=== PATIENT | female | born 1985 | race Caucasian/White ===

== ENCOUNTER 2016-08-19 13:11 | Emergency (ER) | payer MEDICAID ==
[2016-08-19 13:33] VITALS: BP 118/72
[2016-08-19] MEDS ORDERED: Meclizine 25 MG Tab PO ONE (13:34)
--- NOTE | 2016-08-19 13:37 | EDM.PDOC ---
ED HPI GENERAL MEDICAL PROBLEM - General Chief Complaint: General Stated Complaint: DIZZY, LIGHT HEADED, VOMITTING Time Seen by Provider: 08/19/16 13:20 Source of Information: Reports: Patient, Family History Limitations: Reports: No Limitations - History of Present Illness INITIAL COMMENTS - FREE TEXT/NARRATIVE: 31 y.o.w.f in prev healthy condition, came to the ed due to dizziness since last night, denies history of vertigo. No N/V/D or other acute medical issues. Onset: Sudden Onset Date: 08/18/16 Onset Time: 19:00 Duration: Hour(s): Location: Reports: Head Severity: Moderate Improves with: Reports: None Worsens with: Reports: None Associated Symptoms: Reports: No Other Symptoms - Related Data Allergies Allergy/AdvReac Type Severity Reaction Status Date / Time No Known Allergies Allergy Verified 03/17/15 08:03 Home Meds: Home Meds Ciprofloxacin HCl [Cipro] 500 mg PO BID #20 tablet 08/19/16 [Rx] Hydrocort/Neomycin/Polymyxin B [Tczlhija-Qbotkishx-EU Otic Susp] 3 drop EARRT Q8HR 8 Days 08/19/16 [Rx] Meclizine [Antivert] 25 mg PO TID PRN #20 tab.chew 08/19/16 [Rx] Past Medical History - Past Health History Medical/Surgical History: Denies 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: Endocrine/Metabolic History: Reports: Obesity/BMI 30+ - Infectious Disease History Infectious Disease History: Reports: Chicken Pox - Past Surgical History Endocrine Surgical History: Reports: None Social & Family History - Family History Endocrine/Metabolic: Reports: Obesity/MBI 30+ - Tobacco Use Smoking Status *Q: Never Smoker - Alcohol Use Days Per Week of Alcohol Use: 0 - Recreational Drug Use Recreational Drug Use: No ED ROS GENERAL - Review of Systems Review Of Systems: See Below Constitutional: Reports: No Symptoms HEENT: Reports: Vertigo Respiratory: Reports: No Symptoms Cardiovascular: Reports: No Symptoms Endocrine: Reports: No Symptoms GI/Abdominal: Reports: No Symptoms : Reports: No Symptoms Musculoskeletal: Reports: No Symptoms Skin: Reports: No Symptoms Neurological: Reports: No Symptoms Psychiatric: Reports: No Symptoms Hematologic/Lymphatic: Reports: No Symptoms Immunologic: Reports: No Symptoms ED EXAM, GENERAL - Physical Exam Exam: See Below Exam Limited By: No Limitations General Appearance: Alert, WD/WN, Mild Distress, Obese Eye Exam: Bilateral Eye: Nystagmus Ears: Other (OE r ear) Ear Exam: Bilateral Ear: Auricle Normal Nose: Normal Inspection, Normal Mucosa Throat/Mouth: Normal Inspection, Normal Lips, Normal Teeth, Normal Gums Head: Atraumatic, Normocephalic Neck: Normal Inspection, Supple, Non-Tender, Full Range of Motion Respiratory/Chest: No Respiratory Distress, Lungs Clear, Normal Breath Sounds, No Accessory Muscle Use, Chest Non-Tender Cardiovascular: Normal Peripheral Pulses, Regular Rate, Rhythm, No Edema, No Gallop, No JVD, No Murmur, No Rub Peripheral Pulses: 2+: Femoral (L), Femoral (R) GI/Abdominal: Normal Bowel Sounds (Female) Exam: Deferred Rectal (Female) Exam: Deferred Back Exam: Normal Inspection, Full Range of Motion Neurological: Alert, Oriented, CN II-XII Intact, Other (nystagmus) Psychiatric: Normal Affect, Normal Mood Skin Exam: Warm, Dry, Intact, Normal Color, No Rash Lymphatic: No Adenopathy Course - Vital Signs Text/Narrative:: 31 y.o.w.f in prev healthy condition, came to the ed due to dizziness since last night, denies history of vertigo. No N/V/D or other acute medical issues. PE: Bilat nystagmus Labs; UA pos for UTI Impression: BPPV, UTI Tx: Antivert Reexam: Impreoved 50% Plan: D/C with instructions Last Recorded V/S: Last Vital Signs Temp 36.8 C 08/19/16 13:20 Pulse 73 08/19/16 13:20 Resp 18 08/19/16 13:20 BP 118/72 08/19/16 13:20 Pulse Ox 100 08/19/16 13:20 Orthostatic Blood Pressure [ 113/78 Standing] Orthostatic Blood Pressure [ 103/65 Sitting] Orthostatic Blood Pressure [ 110/70 Supine] - Orders/Labs/Meds Orders: Active Orders 24 hr Category Date Time Status CULTURE URINE [RM] Stat Lab 08/19/16 15:59 Uncollected Labs: Laboratory Tests 08/19/16 08/19/16 08/19/16 Range/Units 14:50 14:50 14:50 WBC 7.0 (4.5-12.0) X10-3/uL RBC 5.21 H (3.23-5.20) x10(6)uL Hgb 14.5 D (11.5-15.5) g/dL Hct 43.6 D (30.0-51.3) % MCV 83.7 (80-96) fL MCH 27.8 (27.7-33.6) pg MCHC 33.2 (32.2-35.4) g/dL RDW 12.9 (11.5-15.5) % Plt Count 317 (125-369) X10(3)uL MPV 7.3 L (7.4-10.4) fL Neut % (Auto) 65.7 (46-82) % Lymph % (Auto) 26.3 (13-37) % Luce % (Auto) 6.4 (4-12) % Eos % (Auto) 1 (1.0-5.0) % Baso % (Auto) 1 (0-2) % Neut # (Auto) 4.7 (1.6-8.3) # Lymph # (Auto) 1.8 (0.6-5.0) # Luce # (Auto) 0.4 (0.0-1.3) # Eos # (Auto) 0.1 (0.0-0.8) # Baso # (Auto) 0.0 (0.0-0.2) # PT 9.9 (8.7-11.1) INR 0.98 (0.89-1.13) Sodium 139 (135-145) mmol/L Potassium 4.4 (3.5-5.3) mmol/L Chloride 106 (100-110) mmol/L Carbon Dioxide 27 (23-29) mmol/L BUN 12 (5-20) mg/dL Creatinine 0.8 (0.6-1.3) mg/dL Est Cr Clr Drug Dosing TNP Estimated GFR (MDRD) > 60 (>60) BUN/Creatinine Ratio 15.0 (9-20) Glucose 89 (80-116) mg/dL Hemoglobin A1c (4.0-6.0) % Calcium 9.3 (8.6-10.2) mg/dL Urine Color (YELLOW) Urine Appearance (CLEAR) Urine pH (5.0-6.5) Ur Specific [place] (1.010-1.025) Urine Protein (NEGATIVE) mg/dL Urine Glucose (UA) (NEGATIVE) mg/dL Urine Ketones (NEGATIVE) mg/dL Urine Occult Blood (NEGATIVE) Urine Nitrite (NEGATIVE) Urine Bilirubin (NEGATIVE) Urine Urobilinogen (NEGATIVE) mg/dL Ur Leukocyte Esterase (NEGATIVE) Urine RBC (0) Urine WBC (0) Ur Squamous Epith Cells (NS,R,O) Urine Bacteria (NS) Urine HCG, Qual (NEGATIVE) 08/19/16 08/19/16 08/19/16 Range/Units 14:50 15:35 15:35 WBC (4.5-12.0) X10-3/uL RBC (3.23-5.20) x10(6)uL Hgb (11.5-15.5) g/dL Hct (30.0-51.3) % MCV (80-96) fL MCH (27.7-33.6) pg MCHC (32.2-35.4) g/dL RDW (11.5-15.5) % Plt Count (125-369) X10(3)uL MPV (7.4-10.4) fL Neut % (Auto) (46-82) % Lymph % (Auto) (13-37) % Luce % (Auto) (4-12) % Eos % (Auto) (1.0-5.0) % Baso % (Auto) (0-2) % Neut # (Auto) (1.6-8.3) # Lymph # (Auto) (0.6-5.0) # Luce # (Auto) (0.0-1.3) # Eos # (Auto) (0.0-0.8) # Baso # (Auto) (0.0-0.2) # PT (8.7-11.1) INR (0.89-1.13) Sodium (135-145) mmol/L Potassium (3.5-5.3) mmol/L Chloride (100-110) mmol/L Carbon Dioxide (23-29) mmol/L BUN (5-20) mg/dL Creatinine (0.6-1.3) mg/dL Est Cr Clr Drug Dosing Estimated GFR (MDRD) (>60) BUN/Creatinine Ratio (9-20) Glucose (80-116) mg/dL Hemoglobin A1c 5.4 (4.0-6.0) % Calcium (8.6-10.2) mg/dL Urine Color Yellow (YELLOW) Urine Appearance Slightly cloudy (CLEAR) Urine pH 8.0 H (5.0-6.5) Ur Specific [place] 1.015 (1.010-1.025) Urine Protein Negative (NEGATIVE) mg/dL Urine Glucose (UA) Normal (NEGATIVE) mg/dL Urine Ketones Negative (NEGATIVE) mg/dL Urine Occult Blood Large H (NEGATIVE) Urine Nitrite Negative (NEGATIVE) Urine Bilirubin Negative (NEGATIVE) Urine Urobilinogen Normal (NEGATIVE) mg/dL Ur Leukocyte Esterase Large H (NEGATIVE) Urine RBC 10-20 H (0) Urine WBC 20-30 H (0) Ur Squamous Epith Cells Many H (NS,R,O) Urine Bacteria Moderate H (NS) Urine HCG, Qual Negative (NEGATIVE) Meds: Medications Discontinued Medications Generic Name Dose Route Start Last Admin Trade Name Freq PRN Reason Stop Dose Admin Sodium Chloride 1,000 mls @ 999 mls/hr 08/19/16 15:00 Normal Saline IV ASDIRECTED [facility] Meclizine HCl 50 mg 08/19/16 13:34 08/19/16 13:38 Antivert PO 08/19/16 13:35 50 mg ONETIME ONE Administration Departure - Departure Time of Disposition: 15:42 Disposition: Home, Self-Care 01 Condition: good Clinical Impression: Vertigo, UTI (urinary tract infection) Otitis externa Qualifiers: Otitis externa type: swimmer's ear Laterality: right Chronicity: acute Qualified Code(s): H60.331 - Swimmer's ear, right ear - Discharge Information Prescriptions: Hydrocort/Neomycin/Polymyxin B [Qvwiccqo-Zuxqfittj-PK Otic Susp] 3 drop EARRT Q8HR 8 Days Ciprofloxacin HCl [Cipro] 500 mg PO BID #20 tablet Meclizine [Antivert] 25 mg PO TID PRN #20 tab.chew PRN Reason: for dizziness Instructions: Vertigo Referrals: Moiz Padilla MD [Primary Care Provider] - Forms: ED Department Discharge Additional Instructions: Please take/apply the meds as recommended, please increase water intake, follow u, come back if the symptoms get worse acutely. - My Orders Last 24 Hours: My Active Orders 08/19/16 15:59 CULTURE URINE [RM] Stat - Assessment/Plan Last 24 Hours: My Active Orders 08/19/16 15:59 CULTURE URINE [RM] Stat
[2016-08-19] MEDS ORDERED: Sodium Chloride 0.9% 1,000 ML IV SCH (15:00)
== END 2016-08-19 15:50 | disposition home or self-care (01) ==
LOC: FB.ED 13:11
DX: N39.0 Urinary tract infection, site not specified (principal); R42 Dizziness and giddiness; H60.331 Swimmer's ear, right ear; E66.9 Obesity, unspecified; Z68.30 Body mass index [BMI] 30.0-30.9, adult
CPT/HCPCS: 36415; 80048; 81001; 81025; 83036; 85025; 85610; 99284; A9270; 99283

== ENCOUNTER 2018-04-11 21:20 | Emergency (ER) | payer MEDICAID, SELFPAY ==
[2018-04-11] MEDS ORDERED: Amoxicillin/Clavulanate K 875-125 MG Tab PO ONE (22:56)
--- NOTE | 2018-04-11 22:57 | EDM.PDOC ---
ED HPI GENERAL MEDICAL PROBLEM - General Chief Complaint: ENT Problem Time Seen by Provider: 04/11/18 21:52 Source of Information: Reports: Patient, Family History Limitations: Reports: No Limitations - History of Present Illness INITIAL COMMENTS - FREE TEXT/NARRATIVE: 32 y.o.w.f 28 wks , came to the ed because of left ear pain and decr hearing, and a possible abscessed tooth as well. 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 Pain Score (Numeric/FACES): 10 - Related Data Allergies Allergy/AdvReac Type Severity Reaction Status Date / Time No Known Allergies Allergy Verified 04/11/18 22:24 Home Meds: Home Meds Acetaminophen [Tylenol Extra Strength] 1,000 mg PO Q6H PRN 04/11/18 [History] Amoxicillin/Potassium Clav [Augmentin 875-125 Tablet] 1 each PO BID #20 tablet 04/11/18 [Rx] [id number]/Iron Fumarate/FA/DSS [ 19 Tablet] 1 each PO DAILY 04/11/18 [ History] Past Medical History - Past Health History Medical/Surgical History: Denies Medical/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: Endocrine/Metabolic History: Reports: Obesity/BMI 30+ - Infectious Disease History Infectious Disease History: Reports: Chicken Pox - Past Surgical History Endocrine Surgical History: Reports: None Social & Family History - Family History Family Medical History: Noncontributory Endocrine/Metabolic: Reports: Obesity/MBI 30+ - Tobacco Use Smoking Status *Q: Never Smoker - Caffeine Use Caffeine Use: Reports: Soda - Recreational Drug Use Recreational Drug Use: No ED ROS ENT - Review of Systems Review Of Systems: See Below Constitutional: Reports: No Symptoms HEENT: Reports: Ear Pain Respiratory: Reports: No Symptoms Endocrine: Reports: No Symptoms GI/Abdominal: Reports: Other () : Reports: No Symptoms Musculoskeletal: Reports: No Symptoms Skin: Reports: No Symptoms Neurological: Reports: No Symptoms Psychiatric: Reports: No Symptoms Hematologic/Lymphatic: Reports: No Symptoms Immunologic: Reports: No Symptoms ED EXAM, ENT - Physical Exam Exam: See Below Exam Limited By: No Limitations General Appearance: Alert, WD/WN, Mild Distress Eye Exam: Bilateral Eye: Normal Inspection Ears: Canal Material, Canal Swelling, TM Bulging Nose: Normal Inspection, Normal Mucousa, No Blood Mouth/Throat: Normal Inspection, Dental Abcess (possible), Dental Pain Head: Atraumatic, Normocephalic Neck: Normal Inspection, Supple, Non-Tender, Full Range of Motion Respiratory/Chest: No Respiratory Distress, Lungs Clear, Normal Breath Sounds, No Accessory Muscle Use, Chest Non-Tender Cardiovascular: Normal Peripheral Pulses, Regular Rate, Rhythm, No Edema, No Gallop, No JVD, No Murmur GI/Abdominal: Normal Bowel Sounds, Soft, Non-Tender, No Organomegaly, Other ( ) (Female) Exam: Other (28 weeks ) Rectal (Female) Exam: Deferred Back: Normal Inspection, Full Range of Motion Extremities: Normal Inspection, Normal Range of Motion, Non-Tender, No Pedal Edema Neurological: Alert, Oriented, CN II-XII Intact, Normal Cognition, Normal Gait Psychiatric: Normal Affect, Normal Mood Skin: Warm, Dry, Intact, Normal Color, No Rash Lymphatic: No Adenopathy Course - Vital Signs Text/Narrative:: 32 y.o.w.f 28 wks , came to the ed because of left ear pain and decr hearing, and a possible abscessed tooth as well. No trauma, No N/V?D or any other acute medical issue BP 120/70 Pulse 80 Temp 36.8 Puls ox 99% on RA PE: WNWD W F 28 wks prenant, left ear pain, poss left lower tooth 3rd molar Impression: Chronic 3r molar left lower toothache, otitis externa Tx: Augmentin/Corticosporine ear drops Reexam: Improved Plan: D/C with instructions Last Recorded V/S: Last Vital Signs Temp 36.6 C 04/11/18 22:20 Pulse 73 04/11/18 23:21 Resp 18 04/11/18 23:21 BP 129/63 04/11/18 23:21 Pulse Ox 98 04/11/18 23:21 - Orders/Labs/Meds Meds: Medications Discontinued Medications Generic Name Dose Route Start Last Admin Trade Name Christopher PRN Reason Stop Dose Admin Amoxicillin/Clavulanate Potassium 1 tab 04/11/18 22:56 04/11/18 23:11 Augmentin 875 Mg/125 Mg PO 04/11/18 22:57 1 tab ONETIME ONE Administration Neomycin/Polymyxin/Hydrocortisone 0.01 ml 04/11/18 23:00 04/11/18 23:12 Cortisporin Otic Susp EARLF 04/11/18 23:01 3 drop ONETIME ONE Administration Departure - Departure Time of Disposition: 22:53 Disposition: Home, Self-Care 01 Condition: Good Clinical Impression: Otitis externa Qualifiers: Otitis externa type: swimmer's ear Chronicity: acute Laterality: right Qualified Code(s): H60.331 - Swimmer's ear, right ear - Discharge Information Prescriptions: Amoxicillin/Potassium Clav [Augmentin 875-125 Tablet] 1 each PO BID #20 tablet Instructions: Amoxicillin; Clavulanic Acid tablets, Hydrocortisone; Neomycin; Polymyxin B ear solution, Otitis Media, Adult, [id number] Referrals: Mehul Pineda MD [Primary Care Provider] - Forms: ED Department Discharge Additional Instructions: Please apply corticosporine 3 drops to L ear 3 times a day for 7 days. Augmentin as recommended, please follow up with your regular MD if not improving , come back if your symptoms get worse acutely. Please see your dentist this Monday as scheduled.
[2018-04-11] MEDS ORDERED: Hydrocortisone/Neomycin/Polymyxin B Otic Susp 10 ML Bottle EARLF ONE (23:00)
[2018-04-11 23:23] VITALS: BP 129/63
== END 2018-04-11 23:23 | disposition home or self-care (01) ==
LOC: FB.ED 21:20
DX: O99.89 Other specified diseases and conditions complicating pregnancy, childbirth and the puerperium (principal); H60.331 Swimmer's ear, right ear; K08.89 Other specified disorders of teeth and supporting structures; E66.9 Obesity, unspecified; Z3A.28 28 weeks gestation of pregnancy
CPT/HCPCS: 99282; A9270; 99283

== ENCOUNTER 2018-05-18 00:49 | Emergency (ER) | payer SELFPAY ==
[2018-05-18] MEDS ORDERED: Amoxicillin 500 MG Cap PO ONE (01:14)
[2018-05-18 01:17] VITALS: BP 116/71
--- NOTE | 2018-05-18 01:20 | EDM.PDOC ---
ED HPI GENERAL MEDICAL PROBLEM - General Chief Complaint: ENT Problem Stated Complaint: EAR PAIN Time Seen by Provider: 05/18/18 00:49 Source of Information: Reports: Patient History Limitations: Reports: No Limitations - History of Present Illness INITIAL COMMENTS - FREE TEXT/NARRATIVE: 32 y.o.w.f 34 weeks , came to the ed due to left ear pain without decreased or loss of hearing. Pt was een by her PMD multiple times for same and no cause of pain was found. Pt took Tylenol without pain improvement. Pt was on Amoxicill 3 weeks ago, which helped her pain. No N/V/D or any other acute med issues. 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 - Related Data Allergies Allergy/AdvReac Type Severity Reaction Status Date / Time No Known Allergies Allergy Verified 05/18/18 01:01 Home Meds: Home Meds Acetaminophen [Tylenol Extra Strength] 1,000 mg PO Q6H PRN 04/11/18 [History] [id number]/Iron Fumarate/FA/DSS [ 19 Tablet] 1 each PO DAILY 04/11/18 [ History] Past Medical History - Past Health History Medical/Surgical History: Denies 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: Endocrine/Metabolic History: Reports: Obesity/BMI 30+ - Infectious Disease History Infectious Disease History: Reports: Chicken Pox - Past Surgical History Endocrine Surgical History: Reports: None Social & Family History - Family History Family Medical History: Noncontributory Endocrine/Metabolic: Reports: Obesity/MBI 30+ - Tobacco Use Smoking Status *Q: Never Smoker - Caffeine Use Caffeine Use: Reports: Soda - Recreational Drug Use Recreational Drug Use: No ED ROS ENT - Review of Systems Review Of Systems: See Below Constitutional: Reports: No Symptoms HEENT: Reports: Ear Pain Respiratory: Reports: No Symptoms Cardiovascular: Reports: No Symptoms Endocrine: Reports: No Symptoms GI/Abdominal: Reports: No Symptoms : Reports: No Symptoms Musculoskeletal: Reports: No Symptoms Skin: Reports: No Symptoms Neurological: Reports: No Symptoms Psychiatric: Reports: No Symptoms Hematologic/Lymphatic: Reports: No Symptoms Immunologic: Reports: No Symptoms ED EXAM, ENT - Physical Exam Exam: See Below Exam Limited By: No Limitations General Appearance: Alert, WD/WN, Mild Distress Eye Exam: Bilateral Eye: Normal Inspection Ears: Normal External Exam, Normal Canal, TM Dullness (left ear), TM Obscured by Cerumen Nose: Normal Inspection, Normal Mucousa, No Blood Mouth/Throat: Normal Inspection, Normal Gums, Normal Lips, Normal Oropharynx, Normal Teeth Head: Atraumatic, Normocephalic Neck: Normal Inspection, Supple, Non-Tender, Full Range of Motion Respiratory/Chest: No Respiratory Distress, Lungs Clear, Normal Breath Sounds, No Accessory Muscle Use, Chest Non-Tender Cardiovascular: Normal Peripheral Pulses, Regular Rate, Rhythm, No Edema, No Gallop, No Murmur, No Rub GI/Abdominal: Normal Bowel Sounds, Soft, Non-Tender, No Organomegaly, No Abnormal Bruit, No Mass, Pelvis Stable (Female) Exam: Other (34 week spregnent FHT 140) Rectal (Female) Exam: Deferred Back: Normal Inspection, Full Range of Motion Extremities: Normal Inspection, Normal Range of Motion, Non-Tender, No Pedal Edema Neurological: Alert, Oriented, CN II-XII Intact, Normal Cognition, Normal Gait Psychiatric: Normal Affect, Normal Mood Skin: Warm, Dry, Intact, Normal Color Lymphatic: No Adenopathy Course - Vital Signs Text/Narrative:: 32 y.o.w.f 34 weeks , came to the ed due to left ear pain without decreased or loss of hearing. Pt was een by her PMD multiple times for same and no cause of pain was found. Pt took Tylenol without pain improvement. Pt was on Amoxicill 3 weeks ago, which helped her pain. No N/V/D or any other acute med issues. BP 116/71 Pulse 84 Temp 37.1 RR 18 Pulse ox 98% on RA FHT 140 PE: WNWD W F 34 wks with lefyt ear pain, nl hearing Impression: possible left OM Tx: Amoxicillin Reexam: Improved Plan: F/U with ENT in am, D/C'd with instructions Last Recorded V/S: Last Vital Signs Temp 36.3 C 05/18/18 01:16 Pulse Resp 18 05/18/18 01:16 BP 116/71 05/18/18 01:16 Pulse Ox 98 05/18/18 01:16 - Orders/Labs/Meds Meds: Medications Discontinued Medications Generic Name Dose Route Start Last Admin Trade Name Christopher PRN Reason Stop Dose Admin Amoxicillin 500 mg 05/18/18 01:14 05/18/18 01:20 Amoxil PO 05/18/18 01:15 500 mg ONETIME ONE Administration Departure - Departure Time of Disposition: 01:17 Disposition: Home, Self-Care 01 Condition: Good Clinical Impression: Qualifiers: Weeks of gestation: 34 weeks Qualified Code(s): Z3A.34 - 34 weeks gestation of Otitis media Qualifiers: Chronicity: subacute Laterality: left Recurrence: recurrent - Discharge Information Referrals: Mehul Pineda MD [Primary Care Provider] - Forms: ED Department Discharge, ED Return to Work/School Form Additional Instructions: Please take amoxicillin as recommended, please follow up with ENT, please come back if your symptoms get worse acutely.
== END 2018-05-18 01:25 | disposition home or self-care (01) ==
LOC: FB.ED 00:49
DX: O99.89 Other specified diseases and conditions complicating pregnancy, childbirth and the puerperium (principal); H66.92 Otitis media, unspecified, left ear; Z3A.34 34 weeks gestation of pregnancy
CPT/HCPCS: 99282; A9270

== ENCOUNTER 2018-07-03 07:01 | Inpatient (IN) | payer SELFPAY ==
[2018-07-03] MEDS ORDERED: Misoprostol 25 MCG (1/4 of 100 MCG) Tab VAG ONE (07:03)
[2018-07-03] MEDS ORDERED: Sodium Chloride 0.9% 10 ML Syringe FLUSH PRN (07:57)
[2018-07-03] MEDS: Lactated Ringers 1,000 ML IV SCH ×3 (13:15→19:37)
[2018-07-03] MEDS ORDERED: INFUSION EPIDUR ONE (14:25)
[2018-07-03] MEDS ORDERED: ROPIVACAINE EPIDUR ONE (14:25)
--- NOTE | 2018-07-03 17:51 | PCM.SN ---
- Free Text/Narrative Note: ANESTHESIA PAIN SERVICE Date: 07/03/2018 Time: 1625 to 1700 Dx: Labor with Pain Rx: Labor Epidural with PCEA Physician and the Patient are requesting a Labor Epidural placement for pain control. See the anesthesia blue sheet for a H&P. Risks and benefits were discussed with the patient and her including PDPH, CLBP, site infection and epidural failure or incomplete coverage. Consent was obtained. Monitors: NIBP, HR and SpO2. Vital Signs: Please see the nursing notes. IV fluids infusing with a bolus of 500 ml's given. The patient was placed in a sitting position. The L2-3 interspace was located by palpitation. Using the B/Davila Perifix Continuous Epidural Anesthesia Tray, the lumbar area was prepped X 3 swabs with Betadine and allowed to dry. Using aseptic technique, the sterile clear drape was applied and the L2-3 interspace was infiltrated with 5 ml's of 1% Lidocaine plain using a 25 G needle. I then proceeded to insert a Perifix 17 G 3.5 in. Tuohy Epidural Needle X 1 attempt with (+) SHARMIN at 7 cm and NO CSF, Blood or Periesthesia. The Perifix FX Springwound Epidural Catheter 19 G. Open Tip was inserted easily through the Touhy needle to a depth of 13 cm to the skin. A test dose of 3 ml's of 1.5% Lidocaine with Epi 1/200,000 was injected after negative aspiration for CSF or Blood. NO intrathecal or tachycardia Sx were noted. The catheter was secured with an Opsite and tape. After the physician broke her "water", I injected a total of 15 ml's of .2% Naropin in divided doses without complications. After about 10 minutes, she stated that her legs are "very heavy" but she could lift her knees. I then started the continuous infusion of .2% Naropin at 10 ml/hr, PCEA of 4 ml every 15 minutes, and the total dose/hr of 26 ml's. I did instruct the patient on how to use the PCEA button with patient understanding it. Patient is without complaints or pain at this time. Miko Connor CRNA, Radha
[2018-07-03] MEDS ORDERED: ePHEDrine 50 MG/ML SDV IVPUSH PRN (17:56)
[2018-07-03] MEDS ORDERED: Ondansetron 4 MG/2 ML SDV IVPUSH PRN (17:56)
[2018-07-03] MEDS ORDERED: Lactated Ringers 500 ML IV ONE (18:00)
--- NOTE | 2018-07-03 19:30 | PCM.LDHP ---
L&D History of Present Illness - General Date of Service: 07/03/18 Admit Problem/Dx: Patient Status Order with Admit Dx/Problem 07/03/18 07:03 Admission Status [Patient Status] [ADT] Routine 07/03/18 16:48 Admission Status [Patient Status] [ADT] Routine Admission Diagnosis/Problem Admission Diagnosis/Problem Source of Information: Patient History Limitations: Reports: No Limitations - History of Present Illness Introduction:: 32 yo at term,for induction of labor - Related Data Allergies/Adverse Reactions: Allergies Allergy/AdvReac Type Severity Reaction Status Date / Time No Known Allergies Allergy Verified 07/03/18 08:15 Home Medications: Home Meds [id number]/Iron Fumarate/FA/DSS [ 19 Tablet] 1 each PO DAILY 04/11/18 [ History] Past Medical History - Past Health History Medical/Surgical History: Denies Medical/Surgical History 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 OB/BYN History: Endocrine/Metabolic History: Reports: Obesity/BMI 30+ - Infectious Disease History Infectious Disease History: Reports: Chicken Pox - Past Surgical History Endocrine Surgical History: Reports: None Social & Family History - Family History Family Medical History: Noncontributory Respiratory: Reports: Asthma Psychiatric: Reports: Other (See Below) Other Psychiatric Family History: grandmother has mental illness Endocrine/Metabolic: Reports: Obesity/MBI 30+ Oncologic: Reports: Colon - Tobacco Use Smoking Status *Q: Never Smoker Second Hand Smoke Exposure: No - Caffeine Use Caffeine Use: Reports: Soda - Recreational Drug Use Recreational Drug Use: No H&P Review of Systems - Review of Systems: Review Of Systems: ROS reveals no pertinent complaints other than HPI. L&D Exam - Exam Exam: See Below - Vital Signs Vital Signs: Last Vital Signs Temp 97.6 F 07/03/18 15:45 Pulse 98 07/03/18 19:05 Resp 20 07/03/18 19:00 BP 118/69 07/03/18 19:05 Pulse Ox 100 07/03/18 19:00 Weight: 109.769 kg - OB Specific Contraction Duration (sec): 50 Contraction Frequency (min): 5 Contraction Intensity: Irritability - Ordaz Score Ordaz Score Cervix Position: Posterior Ordaz Score Consistency: Soft Ordaz Score Dilation: 1-2 cm Ordaz Score Infant's Station: -2 - Exam General: Alert, Oriented HEENT: PERRLA, Conjunctiva Clear, EACs Clear, EOMI, Hearing Intact, Mucosa Moist & [place], Nares Patent, Normal Nasal Septum, Posterior Pharynx Clear, TMs Clear Neck: Supple, Trachea Midline Lungs: Clear to Auscultation, Normal Respiratory Effort Cardiovascular: Regular Rate, Regular Rhythm GI/Abdominal Exam: Normal Bowel Sounds, Soft, Non-Tender, No Organomegaly, No Distention, No Abnormal Bruit, No Mass, Pelvis Stable Rectal Exam: Normal Exam, Normal Rectal Tone Genitourinary: Normal external exam, Normal bimanual exam, Normal speculum exam Back Exam: Normal Inspection, Full Range of Motion Extremities: Normal Inspection, Normal Range of Motion, Non-Tender, No Pedal Edema, Normal Capillary Refill Skin: Warm, Dry, Intact Neurological: Cranial Nerves Intact, Reflexes Equal Bilateral Psychiatric: Alert, Normal Affect, Normal Mood - Problem List (1) Encounter for induction of labor SNOMED Code(s): 865541379 ICD Code: Z34.90 - ENCNTR FOR SUPRVSN OF NORMAL , UNSP, UNSP TRIMESTER Status: Acute Current Visit: Yes (2) Normal SNOMED Code(s): 92555948 ICD Code: Z34.90 - ENCNTR FOR SUPRVSN OF NORMAL , UNSP, UNSP TRIMESTER Status: Acute Priority: High Current Visit: No Qualifiers: Trimester: third trimester Qualified Code(s): Z34.93 - Encounter for supervision of normal , unspecified, third trimester Problem List Initiated/Reviewed/Updated: Yes Orders Last 24hrs: Active Orders 24 hr Category Date Time Status Admission Status [Patient Status] [ADT] Routine ADT 07/03/18 07:03 Active Admission Status [Patient Status] [ADT] Routine ADT 07/03/18 16:48 Active Bedrest [RC] ASDIRECTED Care 07/03/18 17:57 Active Communication Order [RC] ASDIRECTED Care 07/03/18 17:57 Active Monitoring [RC] CONTINUOUS Care 07/03/18 17:57 Active Head of Bed Elevation [RC] ASDIRECTED Care 07/03/18 17:57 Active Local Anesthetic Infusion Pump [RC] ASDIRECTED Care 07/03/18 17:57 Active Notify Provider [RC] PRN Care 07/03/18 12:43 Active Notify Provider [RC] STAT Care 07/03/18 12:43 Active Oxygen Therapy [RC] ASDIRECTED Care 07/03/18 17:57 Active PCEA Epidural [RC] ASDIRECTED Care 07/03/18 09:03 Active Pasero Opioid Induced Sedation [RC] Q1H Care 07/03/18 17:57 Active Peripheral IV Care [RC] . DIRECTED Care 07/03/18 17:57 Active Urinary Catheter Assessment [RC] Q4H Care 07/03/18 17:57 Active Vital Signs [RC] Q30M Care 07/03/18 17:57 Active Vital Signs [RC] Q5M Care 07/03/18 17:57 Active Lactated Ringers [Ringers, Lactated] 1,000 ml Med 07/03/18 13:00 Active IV ASDIRECTED Ondansetron [Zofran] Med 07/03/18 17:56 Active 4 mg IVPUSH Q6H PRN Oxytocin/Normal Saline [Pitocin in NS 20 Units/1,000 ML Med 07/03/18 12:45 Active ] 20 unit in 1,000 ml IV TITRATE Sodium Chloride 0.9% [Saline Flush] Med 07/03/18 07:57 Active 10 ml FLUSH ASDIRECTED PRN ePHEDrine [ePHEDrine sulfate] Med 07/03/18 17:56 Active 5 mg IVPUSH ASDIRECTED PRN Do Not Administer Anticoagulant Meds [AST] Per Unit [facility] 07/03/18 17:57 Ordered Routine Do Not Administer IV Narcs or Sedatives [AST] Per Unit Ot 07/03/18 17:57 Ordered Routine Epidural Catheter Management [OM.PC] Routine Ot 07/03/18 09:03 Ordered Epidural Catheter Management [OM.PC] Urgent Ot 07/03/18 17:57 Ordered Peripheral IV Insertion Adult [OM.PC] Routine Ot 07/03/18 07:57 Ordered Respiratory Rate [OM.PC] Routine Ot 07/03/18 17:57 Ordered Medication Orders Ephedrine Sulfate (Ephedrine Sulfate) 5 mg IVPUSH ASDIRECTED PRN PRN Reason: Hypotension Oxytocin/Sodium Chloride (Pitocin In Ns 20 Units/1,000 Ml) 20 unit in 1,000 mls @ 6 mls/hr IV TITRATE KALI; Protocol Last Titration: 07/03/18 18:28 Dose: 1 munits/min, 3 mls/hr Titration: 07/03/18 17:59 Dose: 0.5 munits/min, 1.5 mls/hr Titration: 07/03/18 17:45 Dose: 0 munits/min, 0 mls/hr Titration: 07/03/18 17:00 Dose: 10 munits/min, 30 mls/hr Titration: 07/03/18 15:40 Dose: 8 munits/min, 24 mls/hr Titration: 07/03/18 14:55 Dose: 6 munits/min, 18 mls/hr Titration: 07/03/18 14:25 Dose: 4 munits/min, 12 mls/hr Titration: 07/03/18 13:17 Dose: 2 munits/min, 6 mls/hr Admin: 07/03/18 13:16 Dose: 2 munits/min, 6 mls/hr Lactated Ringer's (Ringers, Lactated) 1,000 mls @ 125 mls/hr IV ASDIRECTED KALI Last Infusion: 07/03/18 17:58 Dose: 999 mls/hr Infusion: 07/03/18 17:45 Dose: 500 mls/hr Infusion: 07/03/18 17:14 Dose: 125 mls/hr Admin: 07/03/18 16:44 Dose: 999 mls/hr Infusion: 07/03/18 16:40 Dose: 999 mls/hr Infusion: 07/03/18 16:00 Dose: 999 mls/hr Admin: 07/03/18 13:15 Dose: 125 mls/hr Ondansetron HCl (Zofran) 4 mg IVPUSH Q6H PRN PRN Reason: Nausea/Vomiting Sodium Chloride (Saline Flush) 10 ml FLUSH ASDIRECTED PRN PRN Reason: Keep Vein Open Last Admin: 07/03/18 08:30 Dose: 10 ml Assessment/Plan Comment:: Trial of Cytotec. Then Pitocin.
[2018-07-03] MEDS ORDERED: Misoprostol 200 MCG Tab RECTAL STA (20:50)
--- NOTE | 2018-07-03 23:04 | DEL ---
DATE OF DELIVERY: 07/03/2018 PROCEDURE: Vaginal delivery, spontaneous. PREOPERATIVE DIAGNOSES: 1. G4, P3, at term. 2. Induction of labor. POSTOPERATIVE DIAGNOSES: 1. Successful induction of labor, elective. 2. Macrosomia. 3. Shoulder dystocia. 4. Spontaneous vaginal delivery. 5. hemorrhage, mild. BRIEF HISTORY: This is a 32-year-old female who was admitted for induction of labor. She progressed well, caudal epidural anesthesia, and AROM at 1700 hours with clear fluid. DELIVERY DETAILS: She was complete at about 8 o'clock. She pushed for about an hour. After the head was delivered, Yanelis maneuver was needed to reduce the anterior shoulder and also reduce the cord around the neck x1. The rest of the baby was then delivered with gentle normal traction for delivery. The baby was put to the nurses to commence resuscitation according to the NRP protocol. There was excessive bleeding noted after the placenta was removed by traction, and this was controlled by uterine massage, bimanual, 800 mcg of Cytotec, and Pitocin IV. Estimated blood loss about 500 mL. The product of the delivery was a live female weighing 9 pounds 8 ounces. scores are pending at the time of this dictation. The mother and baby are both stable. /[id number] DINA/DOC
[2018-07-04] MEDS ORDERED: Hepatitis B Virus Vaccine PF (Pediatric) 10 MCG/0.5 ML SDV ONE (00:19)
[2018-07-04] MEDS: Ibuprofen 800 MG Tab PO PRN (08:56)
--- NOTE | 2018-07-05 07:48 | PCM.PNPP ---
- General Info Date of Service: 07/04/18 Functional Status: Reports: Pain Controlled, Tolerating Diet - Review of Systems General: Reports: No Symptoms HEENT: Reports: No Symptoms Pulmonary: Reports: No Symptoms Cardiovascular: Reports: No Symptoms Gastrointestinal: Reports: No Symptoms Genitourinary: Reports: No Symptoms Musculoskeletal: Reports: No Symptoms Skin: Reports: No Symptoms Neurological: Reports: No Symptoms Psychiatric: Reports: No Symptoms - General Info Date of Service: 07/04/18 - Patient Data Vital Signs - Most Recent: Last Vital Signs Temp 98.5 F 07/05/18 00:00 Pulse 80 07/05/18 00:00 Resp 16 07/05/18 00:00 BP 126/68 07/05/18 00:00 Pulse Ox 98 07/05/18 00:00 Weight - Most Recent: 109.769 kg Med Orders - Current: Current Medications Ibuprofen (Motrin) 800 mg PO Q4H PRN PRN Reason: Pain Last Admin: 07/04/18 08:56 Dose: 800 mg Sodium Chloride (Saline Flush) 10 ml FLUSH ASDIRECTED PRN PRN Reason: Keep Vein Open Last Admin: 07/03/18 08:30 Dose: 10 ml Discontinued Medications Ephedrine Sulfate (Ephedrine Sulfate) 5 mg IVPUSH ASDIRECTED PRN PRN Reason: Hypotension Hepatitis B Vaccine (Engerix-B (Pediatric)) Confirm Administered Dose 10 mcg .ROUTE .STK-MED ONE Stop: 07/04/18 00:20 Last Admin: 07/04/18 01:10 Dose: Not Given Oxytocin/Sodium Chloride (Pitocin In Ns 20 Units/1,000 Ml) 20 unit in 1,000 mls @ 6 mls/hr IV TITRATE KALI; Protocol Last Titration: 07/03/18 18:28 Dose: 1 munits/min, 3 mls/hr Lactated Ringer's (Ringers, Lactated) 1,000 mls @ 125 mls/hr IV ASDIRECTED KALI Last Admin: 07/03/18 19:37 Dose: 999 mls/hr Lactated Ringer's (Ringers, Lactated) 1,000 mls @ 999 mls/hr IV BOLUS ONE Stop: 07/03/18 19:00 Last Admin: 07/03/18 18:28 Dose: 999 mls/hr Misoprostol (Cytotec) 25 mcg VAG ONETIME ONE Stop: 07/03/18 07:04 Last Admin: 07/03/18 07:53 Dose: 25 mcg Misoprostol (Cytotec) 800 mcg RECTAL NOW STA Stop: 07/03/18 20:51 Last Admin: 07/03/18 20:50 Dose: 800 mcg Ondansetron HCl (Zofran) 4 mg IVPUSH Q6H PRN PRN Reason: Nausea/Vomiting - Interaction Disposition, : in Room with Family Interaction: Holding Infant Support Person: - Recovery Exam Fundal Tone: Firm Fundal Level: 1 Fingerbreadths Below Umbilicus Fundal Placement: Midline Lochia Amount: Small Lochia Color: Rubra/Red Perineum Description: Intact, Minimal Bruising/Swelling Episiotomy/Laceration: None Bladder Status: Voiding - Exam General: Alert, Oriented HEENT: Pupils Equal Neck: Supple Lungs: Clear to Auscultation, Normal Respiratory Effort Cardiovascular: Regular Rate, Regular Rhythm GI/Abdominal Exam: Normal Bowel Sounds, Soft, Non-Tender, No Organomegaly, No Distention, No Abnormal Bruit, No Mass, Pelvis Stable Extremities: Normal Inspection, Normal Range of Motion, Non-Tender, No Pedal Edema, Normal Capillary Refill Skin: Warm, Dry, Intact Wound/Incisions: Healing Well Neurological: No New Focal Deficit Psy/Mental Status: Alert, Normal Affect, Normal Mood - Problem List & Annotations (1) Encounter for induction of labor SNOMED Code(s): 792834679 Code(s): Z34.90 - ENCNTR FOR SUPRVSN OF NORMAL , UNSP, UNSP TRIMESTER Status: Acute Current Visit: Yes (2) Normal SNOMED Code(s): 87457027 Code(s): Z34.90 - ENCNTR FOR SUPRVSN OF NORMAL , UNSP, UNSP TRIMESTER Status: Acute Priority: High Current Visit: No Qualifiers: Trimester: third trimester Qualified Code(s): Z34.93 - Encounter for supervision of normal , unspecified, third trimester - Problem List Review Problem List Initiated/Reviewed/Updated: Yes - Plan Plan:: Motrin PRN
--- NOTE | 2018-07-05 07:49 | PCM.PNPP ---
- General Info Date of Service: 07/05/18 Subjective Update: Doing well. Functional Status: Reports: Pain Controlled - Review of Systems General: Reports: No Symptoms HEENT: Reports: No Symptoms Pulmonary: Reports: No Symptoms Cardiovascular: Reports: No Symptoms Gastrointestinal: Reports: No Symptoms Genitourinary: Reports: No Symptoms Musculoskeletal: Reports: No Symptoms Skin: Reports: No Symptoms Neurological: Reports: No Symptoms Psychiatric: Reports: No Symptoms - General Info Date of Service: 07/05/18 - Patient Data Vital Signs - Most Recent: Last Vital Signs Temp 98.5 F 07/05/18 00:00 Pulse 80 07/05/18 00:00 Resp 16 07/05/18 00:00 BP 126/68 07/05/18 00:00 Pulse Ox 98 07/05/18 00:00 Weight - Most Recent: 109.769 kg Med Orders - Current: Current Medications Ibuprofen (Motrin) 800 mg PO Q4H PRN PRN Reason: Pain Last Admin: 07/04/18 08:56 Dose: 800 mg Sodium Chloride (Saline Flush) 10 ml FLUSH ASDIRECTED PRN PRN Reason: Keep Vein Open Last Admin: 07/03/18 08:30 Dose: 10 ml Discontinued Medications Ephedrine Sulfate (Ephedrine Sulfate) 5 mg IVPUSH ASDIRECTED PRN PRN Reason: Hypotension Hepatitis B Vaccine (Engerix-B (Pediatric)) Confirm Administered Dose 10 mcg .ROUTE .STK-MED ONE Stop: 07/04/18 00:20 Last Admin: 07/04/18 01:10 Dose: Not Given Oxytocin/Sodium Chloride (Pitocin In Ns 20 Units/1,000 Ml) 20 unit in 1,000 mls @ 6 mls/hr IV TITRATE KALI; Protocol Last Titration: 07/03/18 18:28 Dose: 1 munits/min, 3 mls/hr Lactated Ringer's (Ringers, Lactated) 1,000 mls @ 125 mls/hr IV ASDIRECTED KALI Last Admin: 07/03/18 19:37 Dose: 999 mls/hr Lactated Ringer's (Ringers, Lactated) 1,000 mls @ 999 mls/hr IV BOLUS ONE Stop: 07/03/18 19:00 Last Admin: 07/03/18 18:28 Dose: 999 mls/hr Misoprostol (Cytotec) 25 mcg VAG ONETIME ONE Stop: 07/03/18 07:04 Last Admin: 07/03/18 07:53 Dose: 25 mcg Misoprostol (Cytotec) 800 mcg RECTAL NOW STA Stop: 07/03/18 20:51 Last Admin: 07/03/18 20:50 Dose: 800 mcg Ondansetron HCl (Zofran) 4 mg IVPUSH Q6H PRN PRN Reason: Nausea/Vomiting - Infant Interaction Infant Disposition, : [place] in Room with Family Infant Interaction: Holding Infant Support Person: - Recovery Exam Fundal Tone: Firm Fundal Level: 1 Fingerbreadths Below Umbilicus Fundal Placement: Midline Lochia Amount: Small Lochia Color: Rubra/Red Perineum Description: Intact, Minimal Bruising/Swelling Episiotomy/Laceration: None Bladder Status: Voiding - Exam General: Alert, Oriented HEENT: Pupils Equal Neck: Supple Lungs: Clear to Auscultation, Normal Respiratory Effort Cardiovascular: Regular Rate, Regular Rhythm GI/Abdominal Exam: Normal Bowel Sounds, Soft, Non-Tender, No Organomegaly, No Distention, No Abnormal Bruit, No Mass, Pelvis Stable Extremities: Normal Inspection, Normal Range of Motion, Non-Tender, No Pedal Edema, Normal Capillary Refill Skin: Warm, Dry, Intact Wound/Incisions: Healing Well Neurological: No New Focal Deficit Psy/Mental Status: Alert, Normal Affect, Normal Mood - Problem List & Annotations (1) Encounter for induction of labor SNOMED Code(s): 555008769 Code(s): Z34.90 - ENCNTR FOR SUPRVSN OF NORMAL , UNSP, UNSP TRIMESTER Status: Acute Current Visit: Yes (2) Normal SNOMED Code(s): 34921770 Code(s): Z34.90 - ENCNTR FOR SUPRVSN OF NORMAL , UNSP, UNSP TRIMESTER Status: Acute Priority: High Current Visit: No Qualifiers: Trimester: third trimester Qualified Code(s): Z34.93 - Encounter for supervision of normal , unspecified, third trimester (3) care and examination SNOMED Code(s): 687881167, 738577590 Code(s): Z39.2 - ENCOUNTER FOR ROUTINE FOLLOW-UP Status: Acute Current Visit: Yes - Problem List Review Problem List Initiated/Reviewed/Updated: Yes - Plan Plan:: DC home
[2018-07-05] MEDS: Ibuprofen 800 MG Tab PO PRN (07:59)
[2018-07-05 11:54] VITALS: BP 115/72
--- NOTE | 2018-07-05 15:00 | DISCH ---
DISCHARGE DATE: 07/05/2018 REASON FOR ADMISSION: Induction of labor at term. DISCHARGE DIAGNOSES: 1. Spontaneous vaginal delivery. 2. Anemia, 9.8 hemoglobin. 3. hemorrhage. BRIEF HISTORY AND HOSPITAL COURSE: A 32-year-old female admitted at term for induction of labor. For delivery details, please see the delivery note on 07/03/2018. She did well . Her hemoglobin was 7.8. Did not have any symptoms. Vaginal pain was treated with Motrin and she will go home on the same. FOLLOWUP: Six weeks. Please note that I spent more than 35 minutes in the discharge of the patient. /[id number] DINA/DOC
== END 2018-07-05 11:00 | disposition home or self-care (01) | DRG 806 ==
LOC: FB.OB 07:01 → OBSVTOIN 16:48
PROVIDERS: ADMIT Family Medicine; ATTEND Family Medicine
PROC: 10E0XZZ Delivery of Products of Conception, External Approach (ICD-10-PCS; principal; 2018-07-03)
PROC: 10907ZC Drainage of Amniotic Fluid, Therapeutic from Products of Conception, Via Natural or Artificial Opening (ICD-10-PCS; 2018-07-03)
PROC: 3E033VJ Introduction of Other Hormone into Peripheral Vein, Percutaneous Approach (ICD-10-PCS; 2018-07-03)
PROC: 00HU33Z Insertion of Infusion Device into Spinal Canal, Percutaneous Approach (ICD-10-PCS; 2018-07-03)
DX: O69.81X0 Labor and delivery complicated by cord around neck, without compression, not applicable or unspecified (principal); O72.1 Other immediate postpartum hemorrhage; Z37.0 Single live birth; O36.60X0 Maternal care for excessive fetal growth, unspecified trimester, not applicable or unspecified; O66.0 Obstructed labor due to shoulder dystocia; O90.81 Anemia of the puerperium; Z3A.39 39 weeks gestation of pregnancy
CPT/HCPCS: 01967-QZ; 36415; 59409; 85025; A9270-GY; J2590; J2795; J7120